=== PATIENT | female | born 1955 | race Asian ===

== ENCOUNTER 2020-12-16 16:01 | Inpatient (IN) | payer MEDICARE, MEDICAID ==
[~2020-12-16] VITALS: Ht 157.5 cm; Wt 54.4 kg
[2020-12-16 17:58] LABS: HEMOGLOBIN. 7.4 g/dL (12.0-16.0); MEAN CORPUSCULAR HEMOGLOBIN 30.4 pg (28.0-32.0); MEAN CORPUSCULAR VOLUME 90.8 fL (81.0-99.0); MEAN PLATELET VOLUME 7.2 fl (7.4-10.4); PLATELET 523 x1000/uL (130-400); RED BLOOD CELL COUNT 2.42 mill/uL (4.2-5.4); RED CELL DISTRIBUTION WIDTH 18.9 % (11.6-14.6)
[2020-12-16 18:05] LABS: CHLORIDE 97 mEq/L (98-107)
[2020-12-16 18:14] LABS: INR 1.2; PROTHROMBIN TIME 12.3 sec (9.6-11.0)
[2020-12-16 18:15] LABS: CREATINE KINASE 450 IU/L (26-192)
[2020-12-16 18:53] LABS: CLARITY URINE CLEAR (CLEAR); COLOR URINE DARK YELLOW (YELLOW); KETONES URINE TRACE (NEGATIVE); LEUKOCYTE ESTERASE URINE NEGATIVE (NEGATIVE); NITRITE URINE NEGATIVE (NEGATIVE); OCCULT BLOOD URINE NEGATIVE (NEGATIVE); PROTEIN URINE TRACE (NEGATIVE); SPECIFIC GRAVITY URINE 1.017 (1.005-1.030)
[2020-12-16] MEDS ORDERED: PIPERACILLIN/TAZ 3.375G PREMIX 50 ML IV NR (19:11)
[2020-12-16] MEDS ORDERED: VANCOMYCIN 1 G PREMIX 200 ML IV SCH (19:15)
[2020-12-16] MEDS ORDERED: PIPERACILLIN/TAZOBACTAM 3.375GM/50ML PREMIX IV ONE (19:15)
[2020-12-16] MEDS ORDERED: SODIUM CHLORIDE 0.9% 1000ML BAG (SEPSIS BOLUS) IV ONE (19:15)
[2020-12-16 19:44] LABS: PLATELET ESTIMATE INCREASED
[2020-12-16] MEDS ORDERED: IOHEXOL-350 100 ML BOTTLE ONE (23:22)
[2020-12-17] MEDS ORDERED: VANCOMYCIN 1 G PREMIX 200 ML IV SCH (11:30)
[2020-12-17] MEDS ORDERED: ONDANSETRON HCL 4MG/2ML INJ IV PRN (11:30)
[2020-12-17] MEDS ORDERED: MAGNESIUM/ALUMINUM HYDROXIDE/SIMETHICONE 30ML UDC PO PRN (11:30)
[2020-12-17] MEDS ORDERED: ACETAMINOPHEN 650MG/20.3ML UDC GT PRN (11:30)
[2020-12-17] MEDS ORDERED: PIPERACILLIN/TAZOBACTAM 3.375 G in DEXTROSE 5% WATER 50 ML IV SCH (11:30)
[2020-12-17] MEDS ORDERED: CLONIDINE 0.1MG TABLET PO PRN (11:30)
[2020-12-17] MEDS: CEFEPIME 2,000 MG in DEXT 5% WATER 100 ML IV SCH ×2 (12:03→23:09)
[2020-12-17] MEDS: VANCOMYCIN 500 MG PREMIX 100 ML IV SCH (13:15)
[2020-12-17] MEDS: SODIUM CHLORIDE 0.45% 1,000 ML IV SCH (13:15)
[2020-12-17] MEDS: METRONIDAZOLE 500MG TABLET PO SCH ×2 (14:00→23:09)
[2020-12-17] MEDS ORDERED: MORPHINE SULFATE 2 MG/ML CPJ (NOT FOR IM USE) IV PRN (14:15)
[2020-12-17] MEDS ORDERED: NALOXONE HCL 0.4MG/ML VIAL IV PRN (14:30)
[2020-12-17 14:45] LABS: HEMATOCRIT. 22.7 % (36.0-48.0); HEMOGLOBIN. 7.3 g/dL (12.0-16.0); MEAN CORPUSCULAR HEMOGLOBIN 30.2 pg (28.0-32.0); MEAN CORPUSCULAR VOLUME 93.1 fL (81.0-99.0); PLATELET 514 x1000/uL (130-400); RED BLOOD CELL COUNT 2.43 mill/uL (4.2-5.4); RED CELL DISTRIBUTION WIDTH 19.8 % (11.6-14.6)
[2020-12-17 14:49] LABS: CHLORIDE 98 mEq/L (98-107)
[2020-12-17 14:54] LABS: PHOSPHORUS 3.1 mg/dL (2.5-4.9)
[2020-12-17 15:18] LABS: PLATELET ESTIMATE INCREASED
[2020-12-17 15:41] LABS: TOTAL IRON BINDING CAPACITY 194 ug/dL (250-450)
[2020-12-17 18:00] VITALS: BP 140/84
[2020-12-17] MEDS ORDERED: INFLUENZA VACCINE 05/PF 0.5 ML SYRINGE IM ONE (19:15)
[2020-12-17] MEDS ORDERED: PNEUMOCOCCAL 23-VAL P-SAC VAC 0.5 ML IM ONE (19:15)
[2020-12-17 19:35] VITALS: BP 140/83
[2020-12-17 20:00] VITALS: BP 99/52
[2020-12-18] VITALS: BP 130/78
[2020-12-18] MEDS: VANCOMYCIN 500 MG PREMIX 100 ML IV SCH (00:11)
[2020-12-18] MEDS: SODIUM CHLORIDE 0.45% 1,000 ML IV SCH ×2 (00:11→06:46)
[2020-12-18 04:00] VITALS: BP 135/82
[2020-12-18] MEDS: METRONIDAZOLE 500MG TABLET PO SCH (06:00)
[2020-12-18 06:28] LABS: BASOPHILS % 0.1 % (0.0-2.0); EOSINOPHILS % 0.2 % (0.0-5.0); HEMATOCRIT. 22.6 % (36.0-48.0); HEMOGLOBIN. 7.5 g/dL (12.0-16.0); LYMPHOCYTES % 8.2 % (20.0-50.0); MEAN CORPUSCULAR HEMOGLOBIN 30.1 pg (28.0-32.0); MEAN CORPUSCULAR VOLUME 91.3 fL (81.0-99.0); MONOCYTES % 7.8 % (2.0-8.0); NEUTROPHILS % 83.7 % (40.0-76.0); PLATELET 530 x1000/uL (130-400); RED BLOOD CELL COUNT 2.48 mill/uL (4.2-5.4)
[2020-12-18 08:00] VITALS: BP 131/82
[2020-12-18 08:50] LABS: CHLORIDE 97 mEq/L (98-107)
[2020-12-18 08:59] LABS: HDL CHOLESTEROL 13 mg/dL (40-59); LDL CHOLESTEROL 138 mg/dL (5-100)
[2020-12-18] MEDS: CEFEPIME 2,000 MG in DEXT 5% WATER 100 ML IV SCH ×2 (11:09→22:48)
[2020-12-18 12:00] VITALS: BP 130/81
[2020-12-18] MEDS: VANCOMYCIN 750 MG PREMIX 150 ML IV SCH (12:07)
[2020-12-18 16:00] VITALS: BP 141/73
[2020-12-18] MEDS: METOCLOPRAMIDE HCL 10MG/2ML VIAL IV SCH (18:09)
[2020-12-18] MEDS: PANTOPRAZOLE SODIUM 40 MG/VIAL IV SCH (18:11)
[2020-12-18 20:00] VITALS: BP 131/99
[2020-12-19] VITALS: BP 147/88
[2020-12-19] MEDS: METOCLOPRAMIDE HCL 10MG/2ML VIAL IV SCH ×3 (00:09→12:18)
[2020-12-19] MEDS: VANCOMYCIN 750 MG PREMIX 150 ML IV SCH (00:16)
[2020-12-19 04:00] VITALS: BP 152/83
[2020-12-19] MEDS: SODIUM CHLORIDE 0.45% 1,000 ML IV SCH (09:48)
[2020-12-19] MEDS: PANTOPRAZOLE SODIUM 40 MG/VIAL IV SCH (10:15)
[2020-12-19 12:00] VITALS: BP 129/68
[2020-12-19] MEDS: CEFEPIME 2,000 MG in DEXT 5% WATER 100 ML IV SCH (12:17)
[2020-12-19 12:45] LABS: HEMATOCRIT. 22.4 % (36.0-48.0); HEMOGLOBIN. 7.5 g/dL (12.0-16.0); MEAN CORPUSCULAR VOLUME 92.9 fL (81.0-99.0); PLATELET 428 x1000/uL (130-400); RED BLOOD CELL COUNT 2.41 mill/uL (4.2-5.4); RED CELL DISTRIBUTION WIDTH 19.1 % (11.6-14.6)
[2020-12-19 13:40] LABS: CHLORIDE 98 mEq/L (98-107)
[2020-12-19 13:55] LABS: FERRITIN 840 ng/mL (10-291)
[2020-12-19 15:38] LABS: VITAMIN B12 SERUM > 2000.0 pg/mL (211-911)
[2020-12-19 16:00] VITALS: BP 142/85
[2020-12-19 17:26] VITALS: BP 142/85
[2020-12-19 19:15] LABS: PLATELET ESTIMATE INCREASED
[2020-12-25 17:09] LABS: OVA & PARASITE EXAM Final report (.)
== END 2020-12-19 18:01 | disposition home or self-care (01) | DRG 871 ==
LOC: ER 16:01 → MICUSO 21:16 → 7EST 12-17 15:36
PROVIDERS: ADMIT Family Medicine; ATTEND Family Medicine
DX: A41.9 Sepsis, unspecified organism (principal); E43 Unspecified severe protein-calorie malnutrition; C20 Malignant neoplasm of rectum; C78.7 Secondary malignant neoplasm of liver and intrahepatic bile duct; E87.1 Hypo-osmolality and hyponatremia; E87.2 Acidosis; C78.00 Secondary malignant neoplasm of unspecified lung; N39.0 Urinary tract infection, site not specified; Z20.822 Contact with and (suspected) exposure to COVID-19; E86.0 Dehydration; D64.9 Anemia, unspecified; D75.839 Thrombocytosis, unspecified; Z51.5 Encounter for palliative care; Z85.048 Personal history of other malignant neoplasm of rectum, rectosigmoid junction, and anus; Z68.21 Body mass index [BMI] 21.0-21.9, adult
CPT/HCPCS: 36415; 71045; 71275; 74177; 76700; 80048; 80053; 80061; 80076; 80202; 81003; 82270; 82550; 82607; 82728; 82746; 83540; 83550; 83605; 83735; 83880; 84100; 84145; 84484; 85025; 85044; 87015; 87045; 87177; 87209; 87426; 87427; 87449; 89055; 90686; 90732; 93005; 93970; 97162; 97165; 99285; C9113; J0692; J2270; J2543; J2765; J3370; J7060; Q9967; A4315